=== PATIENT | female | born 1990 | race Caucasian/White ===

== ENCOUNTER 2025-11-04 12:50 | Emergency (ER) | payer BC, SELFPAY ==
[2025-11-04 13:28] VITALS: BP 128/89; PULSE 120; RESP 18; TEMP 36.7; O2SAT 95; BMI 36.2
--- NOTE | 2025-11-04 13:33 | XR_ITS ---
EXAMINATION: PA lateral chest TECHNIQUE: Upright PA lateral chest 2 views Date and time: November 04, 2025, 1443 hours INDICATIONS: Chest pain swelling in the legs 6 weeks. FINDINGS: Mild to moderate enlargement cardiac contour Moderate vascular congestion No lobar pneumonia or catrina pulmonary edema IMPRESSION: Moderate vascular congestion No lobar pneumonia or catrina pulmonary edema
--- NOTE | 2025-11-04 13:33 | EKG_ITS ---
[facility] Test Date: 2025-11-04 Pat Name: CARLY CAMPOS Department: Room: - Gender: Female [employer] Operator: : [id number] Requested By: Bandar Mackey ([employer]) Order Number: [id number] Reading MD: Bandar Mackey ([employer] M[employer] TENDER) Measurements Intervals [place] Rate: 120 P: 60 CO: 127 QRS: 112 QRSD: 105 T: 56 QT: 330 QTc: 467 Interpretive Statements SINUS TACHYCARDIA WITH OCCASIONAL VENTRICULAR PREMATURE COMPLEXES INCOMPLETE RIGHT BUNDLE BRANCH BLOCK [90+ ms QRS DURATION, TERMINAL R IN V1/V2, 40+ ms S IN I/aVL/V4/V5/V6] POSSIBLE RIGHT VENTRICULAR HYPERTROPHY [SOME/ALL OF: PROMINENT R IN V1, LATE TRANSITION, RAD, ANALIA, SSS] MODERATE ST DEPRESSION [0.05+ mV ST DEPRESSION] Compared to ECG 09/08/2019 23:00:35 Ventricular premature complex(es) now present Incomplete right bundle-branch block now present ST (T wave) deviation now present T-wave abnormality no longer present /store/S0/[id number]/ecg/[id number].pdf
--- NOTE | 2025-11-04 13:34 | PD.EDRME ---
Rapid Medical Screening Exam RME Arrival date/time: 11/04/25 12:50 35-year-old female presents to the Emergency Department for complaint of fluid retention Chief Complaint: Abdominal Pain Time Seen by Provider: 11/04/25 13:07 Vital signs: Vital Signs Temperature 98.1 F 11/04/25 13:28 Pulse Rate 120 H 11/04/25 13:28 Respiratory Rate 18 11/04/25 13:28 Blood Pressure 128/89 H 11/04/25 13:28 Pulse Oximetry (%) 95 11/04/25 13:28 Oxygen Delivery Method Room Air 11/04/25 13:28 Vital signs reviewed by provider: Yes Exam: On exam patient does have pitting edema patient reports history of methamphetamine abuse Clinical Impression: Lab work and imaging obtained
[2025-11-04 14:08] LABS: Basophils # (Auto) 0.1 Thou/mm3 (0.0-0.2); Basophils % (Auto) 1 % (0-2.5); Eosinophils # (Auto) 0.1 Thou/mm3 (0.0-0.5); Eosinophils % (Auto) 1 % (0-10); Hematocrit 45.9 % (36.0-46.0); Hemoglobin 15.5 g/dL (12.0-16.0); Immature Granulocytes Auto 0.04 Thou/mm3 (0.00-0.00); Lymphocytes # (Auto) 1.7 Thou/mm3 (1.0-4.8); Lymphocytes % (Auto) 17 % (10-50); Mean Corpuscular HGB Conc 33.8 g/dl (31.0-37.0); Mean Corpuscular Hemoglobin 29.9 pg (25.0-35.0); Mean Corpuscular Volume 88 fL (80-100); Monocytes # (Auto) 0.6 Thou/mm3 (0.0-0.8); Monocytes % (Auto) 6 % (0-12); Neutrophils # (Auto) 7.5 Thou/mm3 (1.8-7.7); Neutrophils % (Auto) 75 % (37-80); Nucleated Red Blood Cell # 0.00 Thou/mm3 (0.00-0.00); Nucleated Red Blood Cell % 0 /100 WBC (0); Platelet Count 187 Thou/mm3 (140-440); RDW Standard Deviation 43.6 fL (36.4-46.3); Red Blood Count 5.19 Miln/mm3 (4.00-5.20); White Blood Count 10.0 Thou/mm3 (3.6-11.0)
--- NOTE | 2025-11-04 14:10 | PC.NURSE ---
PT KEPT TRYING TO INTERRUPT THIS NURSE WHILE TRIAGING A PT. PT GOT UPSET AND WENT OUTSIDE. AFTER TRIAGING A PT THIS NURSE WENT OUTSIDE TO FIND PT AND DID NOT SEE HER.
[2025-11-04 14:28] LABS: INR 1.2 (0.9-1.3); Partial Thromboplastin Time 26.6 Seconds (22.0-36.0); Prothrombin Time 12.2 Seconds (9.0-12.2)
[2025-11-04 14:30] LABS: Alanine Aminotransferase 16 U/L (10-49); Albumin, Serum 4.1 gm/dL (3.5-5.0); Albumin/Globulin Ratio 1.3 (1.2-2.2); Alkaline Phosphatase 89 U/L (46-116); Anion Gap 11 (7-16); Aspartate Amino Transferase 22 U/L (0-34); BUN/Creatinine Ratio 13 Ratio (12-20); Bilirubin,Total 1.1 mg/dL (0.3-1.2); Blood Urea Nitrogen 12 mg/dL (9-23); Calcium 9.4 mg/dL (8.3-10.6); Calcium (Corrected) 9.4 mg/dL (8.5-10.1); Carbon Dioxide 24.0 mMol/L (20.0-31.0); Chloride 106 mMol/L (98-107); Creatinine (Component) 0.9 mg/dL (0.6-1.3); Estimated Creatinine Clearance 96.1 mL/min (>60); Globulin 3.2 gm/dL (2.3-3.5); Glucose 94 mg/dL (74-106); Magnesium 1.7 mg/dL (1.6-2.6); Osmolality,Calculated 280 (275-295); Potassium 4.8 mMol/L (3.4-5.1); Sodium 141 mMol/L (136-145); Total Protein 7.3 gm/dL (5.7-8.2); Troponin I 0.035 ng/mL (0.0-0.045); eGFR > 60 See Note
[2025-11-04 14:33] LABS: Collection Type, Urine Clean Catch
[2025-11-04 14:44] LABS: Bacteria,Urine Rare; Bilirubin,Urine Negative (Negative); Blood,Urine Negative (Negative); Clarity,Urine Turbid (Clear/Hazy); Color,Urine Yellow (Lt Yel-Yel); Culture Indicated,Urine Yes; Glucose, Urine Negative (Negative); Ketones,Urine Negative (Negative); Leukocyte Esterase,Urine Positive (Negative); Nitrite,Urine Negative (Negative); PH,Urine 6.0 (5.0-7.0); Protein,Urine 1+ (Neg - Trace); RBC,Urine 4 /hpf (0-3); Specific Gravity,Urine 1.023 (1.001-1.035); Squamous Epithelial Cell,Urine 8 /hpf (0-5); Urobilinogen,Urine 3.0 mg/dL (0.0-1.0); WBC,Urine 30 /hpf (0-5)
[2025-11-04 14:50] LABS: B-Type Natriuretic Peptide 862 pg/mL (0-100)
[2025-11-04 15:06] LABS: Amphetamine/Methamp Scrn,U Positive (Negative); Barbiturate Screen,Urine Negative (Negative); Benzodiazepines Screen,Urine Negative (Negative); Benzoylecgonine Screen, Ur Negative (Negative); Fentanyl Screen,Urine Negative (Negative); Opiate Screen,Urine Negative (Negative); THC Screen,Urine Negative (Negative)
--- NOTE | 2025-11-04 18:18 | EDNOTE_ITS ---
<Statement entered by Ema Morrow MD - 11/19/25 07:22> As co-signing physician, I was present and available for consult prn. I concur with the plan and care as documented by the midlevel provider. ED General RME/HPI General Chief complaint: Abdominal Pain Stated complaint: L) SIDE SWOLLEN, SOB WHEN WALKING, RUQ ABD PAIN Time Seen by Provider: 11/04/25 13:07 Arrival date/time: 11/04/25 12:50 35-year-old female patient came in for evaluation regarding bilateral lower leg swelling. This been ongoing for the last few days, severity mild. Associated with shortness of breath on low ambulation. Doing nothing patient is not having shortness of breath. Denies any fever denies any cough denies any other complaints. RME / HPI RME / HPI narrative: 11/04/25 12:50 35-year-old female presents to the Emergency Department for complaint of fluid retention Exam: On exam patient does have pitting edema patient reports history of methamphetamine abuse Impression: Lab work and imaging obtained Related Data Previous Rx's ?Medication ?Instructions ?Recorded levetiracetam 500 mg tablet 500 mg PO BID #30 tabs (Keppra) cephalexin 500 mg capsule 500 mg PO TID 7 days #21 cap s 11/04/25 furosemide 20 mg tablet (Lasix) 20 mg PO QDAY #14 tabs 11/04/25 potassium chloride 20 mEq 20 meq PO QDAY #14 tabs 10/19 06/12 tablet,extended release (K-Tab) Allergies Allergy/AdvReac Type Severity Reaction Status Date / Time ketorolac (From Toradol) Allergy Verified 11/04/25 12:53 tramadol Allergy Verified 11/04/25 12:53 Review of Systems Review of Systems Narrative Review of Systems: Review of system reviewed and within normal limits except mentioned in HPI ED Exam Narrative Physical exam: VITAL SIGNS: Reviewed. GENERAL APPEARANCE: Alert and interactive, follows commands, no acute distress, HEAD AND FACE: Non-traumatic. ENT: PERRL, pink conjunctivitis, eyelid no trauma, Mucous membrane moist. NECK: Supple, nontender, no nuchal rigidity. CHEST: No tenderness, no crepitus, no paradoxical movement, no retractions. LUNGS: Clear, well ventilated, symmetric, no rales, no wheezing, no ronchi, no stridor, good breath sounds bilaterally. HEART: Regular rate, regular rhythm, no murmur, no gallops. ABDOMEN: Soft, positive bowel sounds, nondistended, no guarding, nontender, no rebound, no masses, RECTAL: Deferred. GENITAL: Deferred. NEUROLOGICAL: Gross motor function intact sensory function intact, Appropriate for age. MUSCULOSKELETAL: low back nontender, full range of motion. EXTREMITIES:+ Bilateral lower extremity swelling, nontender, full range of motion. SKIN: Color pink, dry, no rash, no lacerations, no abrasions, no contusions. LYMPHATICS: Deferred. Course Quality Measures none Orders Category Date Time Status EKG (ED ONLY) *Do not use* NOW Care 11/04/25 13:33 Completed EKG (ED Only) Stat Exams 11/04/25 13:33 Draft XR chest 2V Stat Exams 11/04/25 13:33 Completed B-Type Natriuretic Peptide Stat Lab 11/04/25 13:56 Completed CBC Stat Lab 11/04/25 13:33 Completed Comprehensive Metabolic Panel Stat Lab 11/04/25 13:56 Completed Drug Screen,Urine Stat Lab 11/04/25 14:10 Completed Magnesium Stat Lab 11/04/25 13:56 Completed Partial Thromboplastin Time Stat Lab 11/04/25 13:56 Completed Prothrombin Time with INR Stat Lab 11/04/25 13:56 Completed Troponin I Stat Lab 11/04/25 13:56 Completed Urinalysis, C/S if Indicated Stat Lab 11/04/25 14:10 Completed Urine Culture Stat Lab 11/04/25 14:10 Received Furosemide [Lasix] Med 11/04/25 18:13 Discontinued 40 mg PO X1 ONE cephALEXin [Keflex] Med 11/04/25 18:13 Discontinued 500 mg PO X1 ONE Vital Signs Vital signs: Vital Signs Temperature 98.1 F 11/04/25 13:28 Pulse Rate 120 H 11/04/25 13:28 Respiratory Rate 18 11/04/25 13:28 Blood Pressure 128/89 H 11/04/25 13:28 Pulse Oximetry (%) 95 11/04/25 13:28 Oxygen Delivery Method Room Air 11/04/25 13:28 Discharge Plan Plan Patient Disposition: HOME (Self Care) Discharge Disposition comment: Stable Prescriptions/Referrals Prescriptions/Med Rec: New furosemide [Lasix] 20 mg tablet 20 mg PO QDAY Qty: 14 0RF potassium chloride [K-Tab] 20 mEq tablet extended release 20 meq PO QDAY Qty: 14 0RF cephalexin 500 mg capsule 500 mg PO TID 7 Days Qty: 21 0RF No Action levetiracetam [Keppra] 500 mg tablet 500 mg PO BID Qty: 30 0RF Referrals: No Primary/Family,Physician [Primary Care Provider] - In 1 week Problem List Clinical Impression: Swelling of lower extremity, UTI (urinary tract infection) Patient/Caregiver Discharge Instructions Discharge Activity: activity as tolerated Education Materials: ED Leg Swelling in Both Legs Additional Instructions: Thank you for the opportunity for serving you today. You are stable for disc harged . You are advised to: Follow-up with your PCP in 1 to 2 days Return to ED for worsening of symptoms Take medication as prescribed Print Language: Bulgarian Stand Alone Forms: [place] Award Info., Patient Portal Info Letter PA/MOLLY Supervising Physician LUKE/MOLLY Supervising Physician: MD Kaela MDM Narrative MDM hospital course (for use when minimal MDM required): 35-year-old female patient came in for evaluation regarding bilateral lower leg swelling. This been ongoing for the last few days, severity mild. Associated with shortness of breath on low ambulation. Doing nothing patient is not having shortness of breath. Denies any fever denies any cough denies any other complaints. Patient's laboratory workup CBC showed no leukocytosis. CMP unremarkable BNP is slightly elevated 862 urinalysis positive for UTI positive for meth for drug toxicity, EKG showed sinus tachycardia, ventricular rate of 120 bpm, and ST segment elevation depression noted. Patient admits of using methamphetamine prior to coming to the emergency room. Chest x-ray showed Moderate vascular congestion No lobar pneumonia or catrina pulmonary edema Patient received Lasix p.o. and Keflex. Patient was counseled about stop using methamphetamine which could be the reason for his beginning congestive heart failure. Patient agrees with the plan. Patient stable for discharge home currently satting 95% on room air. Medication Administration(s) Medication Administration History Discontinued Medications Cephalexin HCl (Cephalexin 250 Mg Capsule) 500 mg PO X1 ONE Stop: 11/04/25 18:14 Furosemide (Furosemide 40 Mg Tablet) 40 mg PO X1 ONE Stop: 11/04/25 18:14 Diagnosis Differential Diagnosis ED Complaint MDM: Bilateral lower extremity edema, UTI, methamphetamine abuse, congestive hea Diagnoses ruled out and/or further discussions: Bilateral lower leg edema, UTI
--- NOTE | 2025-11-04 19:49 | PC.NURSE ---
NO ANSWER AT ER LOBBY OR OUTSIDE ER TO BE TRIAGE.
== END 2025-11-04 19:50 | disposition home or self-care (01) ==
PROVIDERS: Nurse Practitioner Primary Care; Emergency Provider Emergency Medicine
DX: N39.0 Urinary tract infection, site not specified (principal); M79.89 Other specified soft tissue disorders; R09.89 Other specified symptoms and signs involving the circulatory and respiratory systems; R00.0 Tachycardia, unspecified; I49.3 Ventricular premature depolarization; I45.10 Unspecified right bundle-branch block
CPT/HCPCS: 36415; 71046; 80053; 80307; 81001; 83735; 83880; 84484; 85025; 85610; 85730; 87086; 93005; 99283